=== PATIENT | male | born 1960 | race Caucasian/White ===

== ENCOUNTER 2016-12-17 07:46 | Emergency (ER) | payer BC ==
[~2016-12-17] VITALS: Ht 185.4 cm; Wt 94.5 kg
[2016-12-17] MEDS ORDERED: COLESTIPOL HCL1 GM PO (07:59)
[2016-12-17] MEDS ORDERED: LANSOPRAZOLE30 MG PO (07:59)
[2016-12-17 09:28] LABS: HEMATOCRIT 44.3 % (38.0-50.0); MCH 29.4 PG (29.0-34.0); MCHC 34.8 G/DL (30.0-36.0); MCV 84.5 FL (86-99); MEAN PLAT.VOLUME 9.6 uM^3 (9.0-12.4); PLATELET COUNT 262 K/uL (156-360); RBC DIS.WIDTH-CV 13.4 % (11.8-14.6); RBC DIS.WIDTH-SD 41.3 % (39-53); RED BLOOD COUNT 5.24 M/uL (4.00-5.50); WHITE BLOOD COUNT 12.5 K/uL (4.1-10.2)
[2016-12-17 09:35] LABS: CHLORIDE 104 mEq/L (99-109); POTASSIUM 3.7 mEq/L (3.7-5.4); SODIUM 141 mEq/L (136-147)
[2016-12-17 09:38] LABS: GLUCOSE 105 mg/dL (70-99)
[2016-12-17 09:39] LABS: ANION GAP 12 MEQ/L (2-14); TOTAL BILIRUBIN 1.5 mg/dL (0.0-1.0)
[2016-12-17 09:41] LABS: ALKALINE PHOSPHATASE 114 IU/L (3-129); GFR ESTIMATE (CALCULATED) 52 mL/min/
[2016-12-17 09:42] LABS: UREA NITROGEN (BUN) 16 mg/dL (9-23)
[2016-12-17 09:45] LABS: LIPASE 48 U/L (1.0-51.0)
[2016-12-17] MEDS ORDERED: ZOFRAN ODT4 MG PO (11:59)
[2016-12-17] MEDS ORDERED: PERCOCET 5/31 TABLET PO (11:59)
[2016-12-17 12:01] VITALS: BP 132/90
== END 2016-12-17 12:11 | disposition home or self-care (01) ==
LOC: EME 07:46
PROVIDERS: Emergency Medicine
DX: R10.9 Unspecified abdominal pain (principal); K50.90 Crohn's disease, unspecified, without complications
CPT/HCPCS: 74176; 80053; 83690; 85027; 99281; 99285; J2270; J2405; J3010; J7030